=== PATIENT | male | born 1960 | race Caucasian/White ===

== ENCOUNTER 2022-12-08 00:25 | Emergency (ER) | payer MEDICARE ==
[~2022-12-08] VITALS: Ht 170.2 cm; Wt 77.1 kg
[~2022-12-08 00:25] MED LIST: ASPI81CH PO; ASPI81EC PO; BENADRYL 25MG PO; CARBIDOPA PO; CHLO4; CLON1; CLON1 PO; CYCL10; CYCL10 PO; DIVA500ER; ESCI10 PO; HYDROCODONE PO; IBUP800 PO; LAMO100; LEVODOPA PO; LEVSOD137 PO; LISI5 PO; LISINOPRIL PO; LOVA40 PO; MARIJUANA; MEDICAL MARIJUANA; MELO7.5 PO; METH10; Mobic15 MG PO; OLME20-12. PO; QUET25; QUET300; RASA1 PO; RYTARY ER 23.71 EACH PO; SOMA250 MG PO; TRAZ50 PO; ZESTORETIC 20-121 EA PO; [UNRECOGNIZED DRUG - OTHER]
[2022-12-08 05:34] VITALS: BP 107/82
== END 2022-12-08 05:58 | disposition short-term general hospital (02) ==
LOC: ER 00:25
DX: S02.2XXA Fracture of nasal bones, initial encounter for closed fracture (principal); S02.32XA Fracture of orbital floor, left side, initial encounter for closed fracture; S02.831A Fracture of medial orbital wall, right side, initial encounter for closed fracture; Y04.8XXA Assault by other bodily force, initial encounter; Z88.5 Allergy status to narcotic agent; Z79.899 Other long term (current) drug therapy; G20 Parkinson's disease; E03.9 Hypothyroidism, unspecified; I10 Essential (primary) hypertension; Z87.891 Personal history of nicotine dependence
CPT/HCPCS: 70450; 70486; 71046; 72125; 90471; 90714; 96374; 96376; 99285-25; J2270